=== PATIENT | male | born 1960 | race Caucasian/White ===

== ENCOUNTER 2024-07-12 14:50 | Emergency (ER) | payer SELFPAY ==
[2024-07-12 14:58] VITALS: BP 126/85
--- NOTE | 2024-07-12 17:10 | ED.PDOC.TRB ---
ED Provider Triage
-
Patient is a 64-year-old male with past medical history of schizophrenia brought by staff from [facility] for left sided abdominal pain that started today. Patient is tender to left side abdominal region however no acute distress afebrile
stable vital signs . will check labs and order CAT scan to rule out poss diverticulitis.
[2024-07-12 17:29] LABS: % Basophils 0.7 % (0-2); % Eosinophils 4.9 % (0-6); % Immature Granulocytes 0.5 % (0-0.5); % Lymphocytes 22.3 % (20.5-51.1); % Monocytes 8.9 % (1.7-9.3); % Neutrophils 62.7 % (42.2-75.2); Absolute Eosinophils 0.3 10^3/uL (0-0.7); Absolute Lymphocytes 1.4 10^3/uL (1.2-3.4); Absolute Monocytes 0.5 10^3/uL (0.1-0.6); Absolute Neutrophils 3.8 10^3/uL (1.4-6.5); Hematocrit 41.7 % (39.0-52.0); Hemoglobin 14.4 g/dL (13.0-18.0); Mean Corp Hgb Conc. 34.5 g/dL (33.0-37.0); Mean Corpuscular Hgb 31.3 pg (27.0-31.0); Mean Corpuscular Volume 90.7 fL (80.0-94.0); Mean Platelet Volume 9.2 fL (7.4-10.4); Nucleated Red Blood Cells % 0 % (-); Platelet Count 189 10^3/uL (130-400); Red Cell Dist. Width 12.4 % (11.5-14.5); White Blood Cell Count 6.1 10^3/uL (4.8-10.8)
--- NOTE | 2024-07-12 17:54 | ED.GENMED ---
History of Present Illness
General
Chief Complaint: Abdominal Pain
Time Seen by Provider: 07/12/24 17:14
History of Present Illness
History of Present Illness:
64-year-old male with history of schizophrenia presents from [facility] for evaluation of left lower abdominal pain that began this morning. He denies any associated fever, chills, sweats, nausea, vomiting, or diarrhea.
Last bowel movement was 2 days ago. Denies any change to appetite. No history of abdominal surgeries
Review of Systems
Review of Systems
Allergies reviewed?: Yes
All Other Systems: ROS reviewed and negative except as documented in HPI and ROS
Phy Exam
Physical Exam
Physical Exam:
GEN: Well appearing, NAD, WDWN
HEENT: Oral mucosa moist, no scleral icterus
Cardiac: Regular rate
Lung: No respiratory distress, no tachypnea
Abdomen: Soft, nontender, no rigidity
MSK: No gross deformity or injuries
Skin: Good color, no pallor or jaundice, no rashes
Neuro: AO x3, moves all extremities freely
Psych: Calm, cooperative
Course
Orders/Labs/Results
Orders:
Orders
07/12/24 17:14
CT Abd/Pel (IV only)-DH only Urgent
Comment:
Reason For Exam: left sided abd pain
07/12/24 17:23
Complete Blood Count/With Diff Urgent
Comprehensive Metabolic Panel Urgent
Lipase Urgent
07/12/24 18:10
Ketorolac [Toradol] 15 mg IV NOW STA
Abnormal Lab Results
07/12/24
17:23
RBC 4.60 L 10^6/uL
(4.70-6.10)
MCH 31.3 H pg
(27.0-31.0)
Glucose 108 H mg/dl
(70-99)
08/19/24 17:23
07/12/24 17:23
Vital Signs
Initial and Last Documented VS:
Initial Vital Signs
Temp Pulse Resp BP Pulse Ox
98.4 F 79 18 126/85 95
07/12/24 14:58 07/12/24 14:58 07/12/24 14:58 07/12/24 14:58 07/12/24 14:58
Last Documented Vital Signs
Temp Pulse Resp BP Pulse Ox
98.1 F 62 18 124/65 99
07/12/24 19:00 07/12/24 19:00 07/12/24 19:00 07/12/24 19:00 07/12/24 19:00
MDM/Problems Addressed
MDM/Problems Addressed:
Abdominal exam is benign. Imaging was obtained to rule out diverticulitis and this was negative, likely pain due to constipation. Recommend MiraLAX. Discharged into the care of staff member from [facility]
*Critical Care Note
Total Time (30-74mins, 75-104mins- exclusive of procedures): Not Applicable
ED Attending Note
-
Portions of this chart may have been created with voice recognition software.� Occasional wrong word or��sound alike� substitutions may have occurred due to the inherent limitations of voice recognition software.
Discharge Plan
Departure
Patient Disposition: Home (Routine Discharge)
Date of Disposition: 07/12/24
Time of Disposition: 19:15
Patient with high blood pressure during this ER visit?: No
Discharge Problem:
Acute constipation
Instructions: Constipation, Adult (DC)
Prescriptions:
New
polyethylene glycol 3350 [Miralax] 17 gram/dose powder
17 g PO DAILY PRN (Reason: Constipation) Qty: [id number]
Referrals:
Rahul Dale DO [Family Provider] -
Activity Restrictions/Additional Instructions:
Please take 17g (one capful) of Miralax once daily as needed for constipation for up to 2 weeks
Interventions
Interventions:
*Risk Screen - Suicide Last Done: 07/12/24 14:58
*General Assessment Last Done: 07/12/24 14:58
*Neglect/Abuse Screening Last Done: 07/12/24 14:58
ED- Fall Risk Assessment Last Done: 07/12/24 18:24
*ED COVID-19 Vaccine History Last Done: 07/12/24 18:24
*Nursing Disposition Last Done: 07/12/24 19:27
JN-Bhurbv-Yemmgtsjnv Assessment Last Done: 07/12/24 19:05
Discharge Date and Time
Discharge Date/Time: 07/12/24 19:29
Print Language: NICARAGUAN
[2024-07-12 18:02] LABS: ALT (SGPT) 21 U/L (0-50); AST (SGOT) 30 U/L (17-59); Albumin 4.5 g/dl (3.5-5.0); Alkaline Phosphatase 51 U/L (38-126); Blood Urea Nitrogen 20 mg/dl (9-20); Calcium 9.7 mg/dl (8.4-10.2); Glucose 108 mg/dl (70-99); Lipase 94 U/L (23-300); Total Bilirubin 0.5 mg/dl (0.2-1.3); Total Protein 6.9 g/dl (6.3-8.2)
--- NOTE | 2024-07-12 18:09 | EDRN ---
Thelma MARINO in [facility] w/ pt.
[2024-07-12 18:13] LABS: Carbon Dioxide 22 mmol/L (22-30); Chloride 105 mmol/L (98-107); Estimated Creatinine Clearance 85 ml/min; Potassium 4.1 mmol/L (3.5-5.1); Sodium 138 mmol/L (135-145); eGFR > 60.00
[2024-07-12] MEDS: TORADOL 15 MG IV (18:26)
[2024-07-12 18:29] VITALS: BP 160/93
[2024-07-12 19:00] VITALS: BP 124/65
== END 2024-07-12 19:29 | disposition home or self-care (01) ==
LOC: EMR 14:50
PROVIDERS: Nurse Practitioner; EMERGENCY PHYSICIAN Emergency Medicine; FAMILY PHYSICIAN Family Medicine
DX: R10.32 Left lower quadrant pain (principal); K59.09 Other constipation; F20.9 Schizophrenia, unspecified
CPT/HCPCS: 99285; 96374; 74177; 80053; 83690; 85025; Q9967